=== PATIENT | male | born 1955 | race Two or more races ===

== ENCOUNTER 2019-08-09 13:56 | Emergency (ER) | payer SELFPAY ==
[~2019-08-09] VITALS: Ht 162.6 cm; Wt 69.0 kg
[2019-08-09 14:06] VITALS: BP 109/60
[2019-08-09] MEDS ORDERED: LIDOCAINE 1%/EPI 1:100,000 10 ML VIAL IJ ONE (15:00)
[2019-08-09] MEDS ORDERED: BACITRACIN ZINC OINT UDPKT TOP ONE (15:00)
[2019-08-09] MEDS ORDERED: TETANUS, DIPHTHERIA, PERTUSSIS VAC/PF 0.5ML (>7YR OLD) IM ONE (15:00)
[2019-08-09] MEDS ORDERED: ACETAMINOPHEN 325MG TABLET PO STA (15:09)
[2019-08-09] MEDS ORDERED: LIDOCAINE HCL/EPINEPHRINE 1%-EPI 1:100,000 20 ML VIAL INFIL SCH (15:15)
== END 2019-08-09 17:03 | disposition home or self-care (01) ==
LOC: ER 13:56
DX: S01.81XA Laceration without foreign body of other part of head, initial encounter (principal); W01.10XA Fall on same level from slipping, tripping and stumbling with subsequent striking against unspecified object, initial encounter; Y93.9 Activity, unspecified; Y92.9 Unspecified place or not applicable
CPT/HCPCS: 70450; 70486; 90471; 90715; 99284; J3490